=== PATIENT | female | born 1940 | race Caucasian/White ===

== ENCOUNTER 2022-05-01 08:56 | Outpatient (CLI) | payer MEDICARE, BC, SELFPAY ==
--- NOTE | 2022-05-01 09:15 | CRLHL7_ITS ---
For Patients: As a result of the Cures Act, medical imaging exams and procedure reports are released immediately into your electronic medical record. You may view this report before your referring provider. If you have questions, please contact your health care provider. INDICATION: History of colonic polyps. Sigmoid polypectomy. Incomplete colonoscopy. Follow-up. TECHNIQUE : Single contrast water soluble Gastrografin enema performed on a well prepared colon. FINDINGS: Tortuous somewhat redundant sigmoid colon with sigmoid diverticula. Mildly tortuous and redundant descending colon. No stricture, mass, or obstruction. Contrast was instilled to the level of the cecum with opacification of the appendix. Contrast subsequently entered the distal small bowel toward the end of the examination. The post evacuation image demonstrates some residual contrast throughout the colon, rectum, and distal small bowel. 4 minutes 4 seconds fluoroscopy time utilized. These findings were discussed briefly with the patient. IMPRESSION: 1. Tortuous and redundant sigmoid colon and descending colon. Sigmoid diverticula. 2. No stricture, mass, or obstruction. No convincing evidence for filling defects /colonic polyps of the colon. Dictated by Venancio Carlisle MD @ 05/01/2022 11:29:20 AM (Electronically Signed)
== END 2022-05-01 08:57 | disposition home or self-care (01) ==
LOC: RAD 08:57
PROVIDERS: PCP Family Medicine; Visit Provider Internal Medicine Gastroenterology
DX: Z86.010 Personal history of colon polyps (principal); K57.30 Diverticulosis of large intestine without perforation or abscess without bleeding
CPT/HCPCS: 74270; 74280

== ENCOUNTER 2024-07-10 15:06 | Outpatient (CLI) | payer MEDICARE, SELFPAY | END 2024-07-10 15:07 | disposition home or self-care (01) | LOC: AMB 07-22 01:05 | PROVIDERS: PCP Family Medicine; Visit Provider Student in an Organized Health Care Education/Training Program | DX: R51.9 Headache, unspecified (principal) | CPT/HCPCS: A0998 ==